=== PATIENT | male | born 1945 | race Caucasian/White ===

== ENCOUNTER 2024-07-27 11:56 | Outpatient (CLI) | payer MEDICARE, SELFPAY | END 2024-07-27 23:59 | disposition home or self-care (01) | PROVIDERS: Visit Provider Internal Medicine | DX: I20.89 Other forms of angina pectoris (principal); R06.09 Other forms of dyspnea | CPT/HCPCS: 93270; 93272 ==

== ENCOUNTER 2024-08-04 11:12 | Outpatient (CLI) | payer MEDICARE, SELFPAY ==
--- NOTE | 2024-08-04 | CA_ITS ---
APPROVED REPORT Exam: Pharmacologic Technologist: Rhonda Hanna Ht: 5 ft 9 in Wt: 193 lbs BSA: 2.03 m2 HR: 61 bpm BP: 140/74 mmHg Stress Test Details Test: Lexiscan HR Resting HR: 61 bpm Max Heart Rate (APMHR): 139 bpm Max HR Achieved: 88 bpm Target HR (85% APMHR): 118 bpm % of APMHR: 63 Recovery HR: 75 bpm BP Resting BP: 140.0/74.0 mmHg Max BP: 140.0/74.0 mmHg Recovery BP: 126.0/72.0 mmHg ECG Resting ECG: Sinus rhythm, IVCD Stress ECG Conclusion Symptoms: Dizziness, near syncope, hypotension Arrhythmias/Ectopy: None ST-T Changes: None Lexiscan Electronically signed by : Alexandria Cordova MD 08/08/2024 00:19:53
--- NOTE | 2024-08-04 11:19 | NM_ITS ---
APPROVED REPORT Exam: Nuclear Stress Test Indication: cad, htn, hyperlipidemia, angina, syncope Patient Location: Outpatient Stress Tech: Rhonda Hanna NM Tech:Mckenzie MoreauKONRAD RT (R)(N)(M) Ht: 5 ft 9 in Wt: 192 lbs HR: 61 bpm BP: 140/74 mmHg BSA: 2.03 m2 TID: 1.21 BMI: 28.3 History: cad, htn, hyperlipidemia, angina, syncope Procedure: Patient received 0.4 mg of intravenous Lexiscan, resting heart rate 61 bpm, resting blood pressure 140/74 mmHg, with Lexiscan maximum heart rate achieved was 88 bpm which is % of the maximum predicted heart rate and blood pressure was 106/60 mmHg. With Lexiscan, patient denied any complaint of chest pain. Cardiac Stress and Resting SPECT Images: Cardiac Stress and Resting SPECT images were obtained using technetium 99m Myoview 31.0 mCi stress and 10.05 mCi at rest. Resting and stress imaging in supine and prone positions demonstrate a medium sized, moderate, predominantly reversible perfusion defect in the inferior, inferoseptal, and inferolateral LV brannon. There is increase in transient ischemic dilatation ratio (TID 1.21), suggestive of possible multivessel disease or balanced ischemia. Gated imaging demonstrates mild reduction global LV systolic function. There is moderate hypokinesis of the inferior LV wall. LVEF is calculated at 48%. Conclusion: Medium sized, moderate, predominantly reversible perfusion defect in the inferior, inferoseptal, and inferolateral LV brannon. Findings are suggestive of reversible ischemia. There is increase in transient ischemic dilatation ratio (TID 1.21), suggestive of possible multivessel disease or balanced ischemia. Gated imaging demonstrates mild reduction global LV systolic function. There is moderate hypokinesis of the inferior LV wall. LVEF is calculated at 48%. Electronically signed by : Alexandria Cordova MD 08/08/2024 00:17:38
[2024-08-04] MEDS: SODIUM CHLORIDE 0.9% 10ML SYR (RAD ONLY) 10 ML IV ×2 (11:30→13:45)
--- NOTE | 2024-08-04 11:40 | CA_ITS ---
APPROVED REPORT EXAM: Comprehensive 2D, Doppler, and color-flow Echocardiogram Flight Dispatcher: LENA Lim, RVS Ht: 5 ft 9 in Wt: 193lbs BSA: 2.03 BP: 133/80 mmHg Indications: CAD -coronary stents, Cp, near Syncope, RBBB, Abn EKG, SHARMA, Murmur Echo Enhancing Agent Comments: Limited windows due to body habitus 2D Dimensions IVSd 0.81 cm M: 0.6-1.2 LVEF (Visual) 65.00 % PWd 1.15 cm M: 0.6 - 1.2 LA Volume 94.50 mL LVDd 4.17 cm M: 4.2 - 5.9 LA Volume Index 46.32 mL/m2 (M/F) 16-34 LVDs 2.10 cm M: 2.5 - 4.0 Left Atrium 4.07 cm M: 3.0 - 4.0 M-Mode Dimensions LA Diam 4.45 cm (1.9-4.0) LVDd 4.39 cm (3.5-5.7) LVDs 2.61 cm (3.5-5.7) EF (Teich) 58.00% EPSs 0.98 cm FS 35.00% EDV (Teich) 87.20 mL TAPSE 2.30 (<1.7) ESV (Teich) 24.80 mL LV Diastology E Decel Time 200 (160-240 msec) E/A Ratio 0.90 MED A' 10.90 cm/s LAT A' 10.60 cm/s Aortic Valve HELEN Index 0.80 cm2/m2 AoV Peak Carlos. 142.0 (50-130 cm/s) AI PHT 613.00 ms AO Peak GR. 8.10 mmHg AO Mean GR. 4.30 (<5 mmHg) AO VTI 32.5 (18-25 cm) HELEN (VTI) 1.67 (2.5-4.5 cm2) Mitral Valve MV A Velocity 89.0 (40-130 cm/s) E/A Ratio 0.90 Tricuspid Valve TR P. Velocity 277.00 cm/s Left Ventricle The left ventricle is normal size. The left ventricular systolic function is normal. The left ventricular ejection fraction is within the normal range. There is increased LV wall thickness. There is normal LV segmental wall motion. Diastolic function is indeterminate. LVEF is 55%. Right Ventricle The right ventricle is normal size. The right ventricular systolic function is normal. Atria Left atrium is mildly dilated. Right atrium is mildly dilated. There is no Doppler evidence of interatrial shunt. Aortic Valve Aortic valve is mildly thickened. There is no aortic valvular stenosis. Mild aortic regurgitation. Mitral Valve The mitral valve leaflets are mildly thickened. No evidence of mitral valve stenosis. Mild mitral regurgitation. Tricuspid Valve Tricuspid valve is grossly normal in structure and function. Mild tricuspid regurgitation. RVSP is normal. Pulmonic Valve The pulmonary valve is normal in structure. Trace pulmonic regurgitation. Great Vessels The aortic root is normal in size. The ascending aorta is mildly dilated, measuring 3.8 cm in diameter. IVC is normal in size and collapses >50% with inspiration. Pericardium There is no pericardial effusion. Other Information Study Quality: Fair Conclusion Normal biventricular systolic function. Biatrial dilation. Mild AI, mild MR, mild TR. The ascending aorta is mildly dilated, measuring 3.8 cm in diameter. Electronically signed by : Alexandria Cordova MD 08/09/2024 01:14:17
[2024-08-04] MEDS: REGADENOSON 0.4MG/5ML SYRINGE 0.4 MG IV (13:45)
[2024-08-04] MEDS: ISOTOPE MYOVIEW (PER STUDY) 1 DOSE IV (14:25)
== END 2024-08-04 23:59 | disposition home or self-care (01) ==
LOC: RAD 11:15
PROVIDERS: Visit Provider Internal Medicine
DX: I20.89 Other forms of angina pectoris (principal); I10 Essential (primary) hypertension; R55 Syncope and collapse; R00.1 Bradycardia, unspecified; I44.4 Left anterior fascicular block; I45.10 Unspecified right bundle-branch block; R94.31 Abnormal electrocardiogram [ECG] [EKG]; R06.09 Other forms of dyspnea; R42 Dizziness and giddiness
CPT/HCPCS: 78452; 93017; 93018; 93306; A9502; J2785

== ENCOUNTER 2024-09-27 07:33 | Outpatient (CLI) | payer MEDICARE, SELFPAY ==
--- NOTE | 2024-09-27 08:00 | CT_ITS ---
FINAL REPORT CLINICAL HISTORY: abnl stress, chest pain COMPARISON: None FINDINGS: Thin section axial CT images of the chest were obtained with contrast. 3D reformatted images were also obtained. This study was performed with techniques to keep radiation doses as low as reasonably achievable (ALARA). Individualized dose reduction techniques using automated exposure control or adjustment of mA and/or kV according to the patient's size were employed. There is no evidence of pulmonary embolism. There is no evidence of thoracic aortic aneurysm or dissection. There is no evidence of mediastinal or hilar mass or adenopathy.Moderate coronary artery calcifications are present. Scar versus atelectasis is present in the left lung base. There is no evidence of pulmonary mass or nodule. No localized inflammatory process is seen within the lungs. Limited images of the upper abdomen demonstrate mild fatty infiltration of the liver. There is also a 2.4 cm ovoid subcutaneous nodule in the mid back, that may represent a sebaceous cyst. IMPRESSION: No evidence of pulmonary embolism or aortic dissection. 2.4 cm ovoid subcutaneous nodule in the mid back, likely a sebaceous cyst. Reviewed, Interpreted and Dictated by Hector Shrestha MD Transcribed by Shira Sosa Authenticated and [facility]
[2024-09-27 08:05] LABS: Blood Urea Nitrogen 14 mg/dl (9-20); Estimated Glomerular Filt Rate 108 ml/min (>60); GFR (African American) 131 ML/MIN (>60)
[2024-09-27] MEDS: SODIUM CHLORIDE 0.9% 10ML SYR (RAD ONLY) 10 ML IV (08:27)
[2024-09-27] MEDS: 0.9 % SODIUM CHLORIDE 50 ML VIAL IV (08:27)
[2024-09-27] MEDS: IOPAMIDOL-370 (76%);100ML BOTTLE 80 ML IV (08:27)
== END 2024-09-27 23:59 | disposition home or self-care (01) ==
LOC: RAD 07:35
PROVIDERS: Visit Provider Nurse Practitioner
DX: I25.10 Atherosclerotic heart disease of native coronary artery without angina pectoris (principal); R93.1 Abnormal findings on diagnostic imaging of heart and coronary circulation; R55 Syncope and collapse; R94.31 Abnormal electrocardiogram [ECG] [EKG]
CPT/HCPCS: 36415; 71275; 82565; 84520; Q9967

== ENCOUNTER 2024-10-08 13:24 | Observation (INO) | payer MEDICARE, SELFPAY ==
[2024-10-08] VITALS (18 sets, daily range): BP systolic 108–146; BP diastolic 59–88; PULSE 50–70; RESP 16–25; TEMP 36.4–37.1; O2SAT 90–100; BMI 29.5; BMI 27.8
--- NOTE | 2024-10-08 07:06 | IR_ITS ---
APPROVED REPORT Patient Location: Outpatient PROCEDURES Left heart catheterization Left ventriculogram Selective coronary angiogram Intravascular lithotripsy to the distal dominant right coronary Drug-eluting stent deployment to the ostial proximal mid and distal dominant right coronary artery in a contiguous manner using 4 contiguous drug-eluting stents INDICATION Heavy calcification throughout the right coronary, Coronary artery disease, Angina pectoris Informed consent was obtained prior to the procedure. COMPLICATIONS NONE Estimated Blood Loss: LESS THAN 10 ML TECHNIQUE One percent lidocaine used to anesthetize the right anterior aspect of the wrist. The right radial artery was accessed via the Seldinger technique. A 6 Turkmen sheath was placed in the right radial artery. 2.5 mg of Verapamil, 800 mcg of nitroglycerin, 1mg Lidocaine and 5000 U Heparin were given through the arterial sheath. The 6 Turkmen JL 3 guide catheter catheter was also used to perform left heart catheterization, left ventriculogram and selective coronary angiogram. At the end the diagnostic angiogram therapeutic and post administered giving a therapeutic ACT and the guide catheter was placed in the right coronary followed by Choice PT extra-support wire placed distally. A guide liner was required in order to deliver a 3.5 x 34 mm Catarino frontier stent was deployed in the proximal segment at 20 linda. The guide liner was advanced and an additional 3.5 x 34 mm Superior frontier stent was deployed distal to the for stent yet still overlapping the stent also at 20 linda. At this point a 3.5 x 12 mm lithotripsy balloon was advanced and deployed at 3 linda for 80 pulsations. The balloon was brought back incrementally and increased to 5 linda of pressure with lithotripsy throughout the mid and proximal right coronary artery including the ostial segment. Following this a 3 mm x 38 mm Superior frontier stent was placed distal to the last 3.5 mm stent placed and deployed at 18 linda. The balloon was brought back and deployed at 24 linda to further post dilate. A 4 mm x 12 mm Catarino frontier stent was then placed in the ostial segment and deployed at 20 linda. The balloon was deployed incrementally throughout the proximal and midportion at 20 linda to further post dilate. Excellent angiographic results were obtained. At the end the procedure the apparatus was removed the sheath was removed and hemostasis was achieved using TR banding patient was transferred to the postop putting in stable condition. BETHANIE-3 flow was present before and after the procedure ANGIOGRAPHIC RESULTS The left main artery Has an ostial 30% stenosis and a distal 20% stenosis The left anterior descending artery Is patent and proximally calcified creating a 40 to 50% stenosis which extends into the midportion with additional 40% stenoses The circumflex artery Is nondominant has an ostial 80% calcified stenosis followed by a proximal stent which is widely patent with minimal in-stent restenosis with excellent proximal distal transitioning The right coronary artery Is a dominant vessel and has an ostial 40% stenosis proximal 50 and 60% stenoses mid vessel 40% stenosis and a distal calcified eccentric 80% stenosis The COLE ventriculogram reveals Not performed The left ventricular end-diastolic pressure Not measured IMPRESSION Severe to critical disease throughout the dominant right coronary as described above Successful intravascular lithotripsy of the dominant right coronary artery severe and critical disease reduced to 0% with 4 contiguous drug-eluting stents Persistent severe stenosis in the ostial segment of a nondominant circumflex artery which is best managed medically at this time Moderate calcified disease throughout the LAD PLAN 1. Dual antiplatelet therapy 2. LDL less than 55 to be achieved with high intensity statin 3. I would like patient to be admitted to the hospital given the complexity of the procedure with the lithotripsy device and the multiple stents. Patient has advanced age and has comorbidities. IV fluids should be given and repeat chemistry panel in the morning 4. Cardiac rehabilitation 5. Avoidance of tobacco products Electronically signed by : Sebastien Hernandez MD 10/08/2024 13:01:37
[2024-10-08 08:30] LABS: Basophils % 0.7 % (0.1-2.0); Eosinophils # 0.1 Kmm3 (0.0-0.4); Eosinophils % 2.3 % (0.1-12.0); Hematocrit 49.5 % (42.0-52.0); Hemoglobin 15.9 g/dL (14.1-18.0); Lymphocytes # 1.9 K/mm3 (0.7-4.5); Lymphocytes % 34.2 % (10-50); Mean Corpuscular HGB Conc 32.1 g/dL (31.8-35.4); Mean Corpuscular Hemoglobin 29.8 pg (27.0-31.2); Mean Corpuscular Volume 92.7 fl (80-94); Mean Platelet Volume 10.3 fl (7.4-10.4); Monocytes # 0.5 K/mm3 (0.1-1.0); Monocytes % 9.1 % (1.7-9.3); Neutrophils % 53.5 % (37.0-80.0); Nucleated Red Blood Cells # 0 10^3/uL; Nucleated Red Blood Cells % 0 %; Platelet Count 179 K/mm3 (142-424); Red Blood Count 5.34 M/mm3 (4.60-6.20); Red Cell Distribution Width 14.3 % (11.5-17.5); Red Cell Distribution Width-SD 49.1 fL; White Blood Count 5.6 K/mm3 (4.8-10.8)
[2024-10-08 08:42] LABS: Chloride 106 mmol/L (98-107); Potassium 4.4 mmoL/L (3.5-5.1); Sodium 142 mmol/L (136-145)
[2024-10-08 08:45] LABS: Anion Gap 14.4 mEq/L (5-15); Blood Urea Nitrogen 17 mg/dl (9-20); Calcium 9.2 mg/dl (8.4-10.2); Carbon Dioxide 26 mmol/L (22.0-30.0); Creatinine Clearance Estimated 74 mL/min (50-200); Estimated Glomerular Filt Rate 108 ml/min (>60); GFR (African American) 131 ML/MIN (>60); Glucose 94 mg/dl (74-100)
[2024-10-08] MEDS: diphenhydrAMINE 50MG/ML VIAL 50 MG IV (10:06)
[2024-10-08] MEDS: HEPARIN 1,000 UNITS/500ML NS (CATH LAB) 3000 UNIT IV (10:06)
[2024-10-08] MEDS: 0.9 % SODIUM CHLORIDE 500 ML 25 ML IV (10:06)
[2024-10-08] MEDS: NITROGLYCERIN 800MCG/8ML SYR (CATH LAB) 800 MCG IA (10:06)
[2024-10-08] MEDS: LIDOCAINE 1% 10ML MDV 10 ML IJ (10:06)
[2024-10-08] MEDS: HEPARIN 1,000 UNITS/ML 10ML VIAL (CATH LAB) 5000 UNIT IV ×2 (10:06→10:27)
[2024-10-08] MEDS: VERAPAMIL 2.5MG/ML 2ML VIAL 2.5 MG IV (10:33)
[2024-10-08] MEDS: CLOPIDOGREL 300MG TABLET 600 MG PO (10:43)
[2024-10-08] MEDS: FENTANYL 100MCG/2ML VIAL 50 MCG IV (10:53)
[2024-10-08] MEDS: MIDAZOLAM HCL 1MG/ML 5ML VIAL 1 MG IV (10:53)
[2024-10-08 13:23] LABS: CATHL Activated Clotting Time > 400 SEC (74-125)
[2024-10-08] MEDS: IOPAMIDOL-370 (76%);100ML BOTTLE 100 ML IV (13:29)
--- NOTE | 2024-10-08 13:30 | HMH.PHAINT1 ---
Pharmacy Intervention Comments: MEDICATION RECONCILIATION COMPLETED ON PATIENT USING EXTERNAL FILL HISTORY FROM PHARMACY AND LIST FROM CARDIOLOGY OFFICE. -ANGEL BENITEZ, MELISSAD
--- NOTE | 2024-10-08 14:01 | EXP.HP ---
History of Present Illness *Admission Date: 10/08/24 *Reason for visit:: Shortness of breath with exertion *History of present illness: 79-year-old male has been having exertional dyspnea for the past several months at home while [place]. Denies jeane chest pain but has to stop to catch his breath. Symptoms better with rest. Previous heart attack 20 years ago with which she received 4 stents. Denies jeane syncope. Presented for elective heart cath. Had extensive disease necessitating reconstruction of right coronary artery and lithotripsy. Necessitating monitoring overnight [facility] Disclaimer: The information contained in this section may have been updated after the patient was seen, as this information can be updated by other users. Medical History CAD (coronary artery disease) Abnormal findings on diagnostic imaging of heart and coronary circulation Left anterior hemiblock Surgical History H/O heart artery stent S/P cardiac cath Social History Smoking Status: Former smoker smoking status stop date: 1970 alcohol intake: current alcohol intake frequency: holidays/special occasions only current occupational status: retired Travel in the last 8 weeks: None Other Medical History Have you received the Flu Vaccine for this season: No Have you received the Pneumonia Vaccine: No Meds Home Medications and Allergies Home Medications ?Medication ?Instructions ?Recorded ?Confirmed ?Type atenolol 50 mg tablet 50 mg PO DAILY 07/27/24 10/08/24 History coenzyme Q10 10 mg capsule (Co 10 mg PO TID 07/27/24 10/08/24 History Q-10) fosinopril 10 mg tablet 10 mg PO DAILY 07/27/24 10/08/24 History glucosamine HCl 500 mg tablet 500 mg PO DAILY 07/27/24 10/08/24 History nitroglycerin 0.4 mg sublingual 0.4 mg sublingual Q5MINP PRN Chest 07/27/24 10/08/24 History tablet Pain simvastatin 40 mg tablet 40 mg PO HS 07/27/24 10/08/24 History aspirin 81 mg capsule 81 mg PO DAILY 30 days #30 caps 10/08/24 Rx clopidogrel 75 mg tablet (Plavix) 75 mg PO DAILY 30 days #30 tabs 10/08/24 Rx meloxicam 7.5 mg tablet 7.5 mg PO DAILYP PRN Mild Pain 10/08/24 10/08/24 History (Scale Score 1-4) New Prescriptions to Start Prescriptions: aspirin Sebastien Hernandez clopidogrel [Plavix] Sebastien Hernandez Allergies Allergy/AdvReac Type Severity Reaction Status Date / Time No Known Allergies Allergy Verified 08/24/24 11:03 Exam Data for Last 24 hours Vital signs and Labs for Last 24 Hours: Temp Pulse Resp BP Pulse Ox O2 Del Method 97.5 F L 52 L 16 124/68 100 Room Air 10/08/24 13:45 10/08/24 13:45 10/08/24 13:45 10/08/24 13:45 10/08/24 13:45 10/08/24 13:45 Laboratory Results - last 24 hr 10/08/24 08:20: WBC 5.6, RBC 5.34, Hgb 15.9, Hct 49.5, MCV 92.7, MCH 29.8, MCHC 32.1, RDW 14.3, Plt Count 179, MPV 10.3, Neut % (Auto) 53.5, Lymph % (Auto) 34.2, [place] % (Auto) 9.1, Eos % (Auto) 2.3, Baso % (Auto) 0.7, Neut # (Auto) 3.0, Lymph # (Auto) 1.9, [place] # (Auto) 0.5, Eos # (Auto) 0.1, Baso # (Auto) 0.0, Sodium 142, Potassium 4.4, Chloride 106, Carbon Dioxide 26, Anion Gap 14.4, BUN 17, Creatinine 0.70, Estimated Creat Clear 74, Estimated GFR 108, Est GFR ( Amer) 131, Glucose 94, Calcium 9.2 10/08/24 10:14: Activated Clotting Time > 400 H* I & O for Last 24 hours: Intake & Output 10/05/24 10/06/24 10/07/24 10/08/24 23:59 23:59 23:59 23:59 Weight 88.11 kg Constitutional Constitutional: no acute distress, average body habitus and cooperative *Routine HEENT Exam Head: Present normocephalic Eye: Present EOMI and PERRL ENT: Present mucous membranes moist *Routine Neck Exam Neck: Present supple; Absent lymphadenopathy *Routine Respiratory Exam Respiratory: Present CTA bilaterally *Routine Cardiovascular Exam Cardiovascular: Present RRR *Routine Abdominal Exam Abdominal: Present soft and normoactive bowel sounds; Absent tenderness *Routine Rectal Exam Rectal:: deferred *Routine Genitalia Exam Genitalia:: deferred *Routine Extremities Exam Extremities: Absent cyanosis, clubbing or edema *Routine Skin Exam Skin: Present warm; Absent rash *Routine Neurological Exam Neurological: Present alert, oriented X3 and moving all extremities; Absent altered mental status Assessment and Plan *Assessment and plan (1) Atypical angina: Status: Acute Category: Medical Code(s): I20.89 - Other forms of angina pectoris (2) CAD (coronary artery disease): Status: Acute Category: Medical Code(s): I25.10 - Atherosclerotic heart disease of [place] coronary artery without angina pectoris (3) Right bundle branch block: Status: Acute Category: Medical Code(s): I45.10 - Unspecified right bundle-branch block (4) Dyspnea: Status: Acute Qualifiers: Dyspnea type: dyspnea on exertion Qualified Code(s): R06.09 - Other forms of dyspnea Category: Medical Code(s): R06.00 - Dyspnea, unspecified (5) Hypertension: Status: Acute Category: Medical Code(s): I10 - Essential (primary) hypertension (6) Hyperlipidemia: Status: Acute Category: Medical Code(s): E78.5 - Hyperlipidemia, unspecified Plan Mr. Dudley is an 79-year-old male who presented for heart cath as an outpatient due to unstable angina and dyspnea with exertion. Found to have critical right coronary artery disease necessitating lithotripsy and extensive stenting. Discussed case with core composer feeder, request admission for further management overnight, monitoring of kidney function, due to severity and extent of procedure. I agreed to admit for further care. Hemodynamically stable at this time. On room air. Problems addressed as follows: Unstable angina Right bundle branch block CAD Hypertension Hyperlipidemia - Patient presented with shortness of breath with exertion. Symptoms unstable angina. Found to have significant coronary disease in the RCA. Underwent lithotripsy for critical right stenosis. Received 4 stents in right coronary artery. Cardiology requested admission for further monitoring overnight due to extent of procedure. - Initial labs showed normal kidney function with BUN of 17, creatinine 0.7. Hemoglobin within normal range. Repeat CBC, CMP, magnesium ordered for the morning. - Continue dual antiplatelet therapy with Plavix 75 mg daily and aspirin 81 mg daily - Continue home regimen with atenolol 50 mg daily, fosinopril 10 mg daily, and simvastatin 40 mg nightly. Formulary conversions for fosinopril and simvastatin. - If stable in the morning, anticipate discharge tomorrow - Continuous telemetry Full code Cardiac diet Heparinized in Vending Mechanic
--- NOTE | 2024-10-08 16:29 | PC.NURSE ---
New admit this shift. Currently resting in bed. TR band has been removed post cath w/ no issues. Sterile dressing placed, currently C/D/I. Denies chest pain/SOA. VSS. Call rosalba w/in reach. POC ongoing.
[2024-10-08] MEDS: PRAVASTATIN 40MG TAB 80 MG PO (20:19)
[2024-10-09] VITALS: PULSE 60
[2024-10-09 04:00] VITALS: PULSE 60; BMI 28.5
[2024-10-09 07:42] LABS: Basophils % 0.5 % (0.1-2.0); Eosinophils # 0.1 Kmm3 (0.0-0.4); Eosinophils % 1.2 % (0.1-12.0); Hemoglobin 14.5 g/dL (14.1-18.0); Lymphocytes # 1.2 K/mm3 (0.7-4.5); Lymphocytes % 20.7 % (10-50); Mean Corpuscular HGB Conc 32.2 g/dL (31.8-35.4); Mean Corpuscular Hemoglobin 29.3 pg (27.0-31.2); Mean Corpuscular Volume 90.9 fl (80-94); Mean Platelet Volume 10.5 fl (7.4-10.4); Monocytes # 0.6 K/mm3 (0.1-1.0); Neutrophils # 3.9 K/mm3 (1.8-7.8); Neutrophils % 67.4 % (37.0-80.0); Nucleated Red Blood Cells # 0 10^3/uL; Nucleated Red Blood Cells % 0 %; Platelet Count 147 K/mm3 (142-424); Red Blood Count 4.95 M/mm3 (4.60-6.20); Red Cell Distribution Width-SD 47.4 fL; White Blood Count 5.8 K/mm3 (4.8-10.8)
[2024-10-09 07:47] LABS: Chloride 109 mmol/L (98-107)
[2024-10-09 07:48] LABS: Potassium 4.2 mmoL/L (3.5-5.1); Sodium 139 mmol/L (136-145)
[2024-10-09 07:51] LABS: Anion Gap 11.2 mEq/L (5-15); Blood Urea Nitrogen 13 mg/dl (9-20); Calcium 8.7 mg/dl (8.4-10.2); Carbon Dioxide 23 mmol/L (22.0-30.0); Creatinine Clearance Estimated 74 mL/min (50-200); Estimated Glomerular Filt Rate 108 ml/min (>60); GFR (African American) 131 ML/MIN (>60); Glucose 99 mg/dl (74-100)
[2024-10-09 08:00] VITALS: BP 133/82; PULSE 70; RESP 17; TEMP 36.7; O2SAT 95
[2024-10-09] MEDS: LISINOPRIL 10MG TABLET 10 MG PO (08:57)
[2024-10-09] MEDS: CLOPIDOGREL 75MG TAB 75 MG PO (08:57)
[2024-10-09] MEDS: ASPIRIN EC 81MG TABLET 81 MG PO (08:58)
[2024-10-09] MEDS: ATENOLOL 50MG TABLET 50 MG PO (08:58)
--- NOTE | 2024-10-09 11:44 | P.DS_ITS ---
General Admission date:: 10/08/24 HPI HPI HPI: 79-year-old male has been having exertional dyspnea for the past several months at home while [place]. Denies jeane chest pain but has to stop to catch his breath. Symptoms better with rest. Previous heart attack 20 years ago with which she received 4 stents. Denies jeane syncope. Presented for elective heart cath. Had extensive disease necessitating reconstruction of right coronary artery and lithotripsy. Necessitating monitoring overnight Hospital Course Hospital Course Hospital Course: Mr. Dudley is an 79-year-old male who presented for heart cath as an outpatient due to unstable angina and dyspnea with exertion. Found to have critical right coronary artery disease necessitating lithotripsy and extensive stenting. Discussed case with frame assembler, request admission for further management overnight, monitoring of kidney function, due to severity and extent of procedure. Unstable angina Right bundle branch block CAD Hypertension Hyperlipidemia ? S/p PCI on 10/08/2024 with LUMA x 4 to RCA. Patient tolerated procedure well. ? Aspirin 81 mg, clopidogrel 75 mg, simvastatin 40 mg, atenolol 50 mg. ? ECHO 2 months ago revealed normal biventricular systolic function. ? Continue home fosinopril for hypertension. ? Creatinine 0.70, GFR 108. Stable. ? Will follow-up with cardiology within 2 weeks. Exam Data for Last 24 hours Vital signs and Labs for Last 24 Hours: Temp Pulse Resp BP Pulse Ox O2 Del Method 98.1 F 70 17 133/82 95 Room Air 10/09/24 08:00 10/09/24 08:00 10/09/24 08:00 10/09/24 08:00 10/09/24 08:00 10/09/24 11:00 Laboratory Results - last 24 hr 10/08/24 10:14: Activated Clotting Time > 400 H* 10/09/24 07:15: WBC 5.8, RBC 4.95, Hgb 14.5, Hct 45.0, MCV 90.9, MCH 29.3, MCHC 32.2, RDW 14.0, Plt Count 147, MPV 10.5 H, Neut % (Auto) 67.4, Lymph % (Auto) 20.7, [place] % (Auto) 10.0 H, Eos % (Auto) 1.2, Baso % (Auto) 0.5, Neut # (Auto) 3.9, Lymph # (Auto) 1.2, [place] # (Auto) 0.6, Eos # (Auto) 0.1, Baso # (Auto) 0.0, Sodium 139, Potassium 4.2, Chloride 109 H, Carbon Dioxide 23, Anion Gap 11.2, BUN 13, Creatinine 0.70, Estimated Creat Clear 74, Estimated GFR 108, Est GFR ( Amer) 131, Glucose 99, Calcium 8.7 I & O for Last 24 hours: Intake & Output 10/06/24 10/07/24 10/08/24 10/09/24 23:59 23:59 23:59 23:59 Intake Total 120 / 120 400 / 400 Output Total 0 / 0 Balance 120 / 120 400 / 400 Weight 88.11 kg 90.537 kg Constitutional Constitutional: no acute distress *Routine HEENT Exam Head: Present normocephalic Eye: Present EOMI and PERRL ENT: Present mucous membranes moist *Routine Neck Exam Neck: Present supple; Absent lymphadenopathy *Routine Respiratory Exam Respiratory: Present CTA bilaterally *Routine Cardiovascular Exam Cardiovascular: Present RRR *Routine Abdominal Exam Abdominal: Present soft and normoactive bowel sounds; Absent tenderness *Routine Extremities Exam Extremities: Absent cyanosis, clubbing or edema *Routine Skin Exam Skin: Present warm; Absent rash *Routine Neurological Exam Neurological: Present alert and oriented X3 Results Data Completed and Pending Labs on day of discharge: Labs from last 24 hours 10/09/24 10/08/24 07:15 10:14 WBC 5.8 RBC 4.95 Hgb 14.5 Hct 45.0 MCV 90.9 MCH 29.3 MCHC 32.2 RDW 14.0 Plt Count 147 MPV 10.5 H Neut % (Auto) 67.4 Lymph % (Auto) 20.7 [place] % (Auto) 10.0 H Eos % (Auto) 1.2 Baso % (Auto) 0.5 Neut # (Auto) 3.9 Lymph # (Auto) 1.2 [place] # (Auto) 0.6 Eos # (Auto) 0.1 Baso # (Auto) 0.0 Activated Clotting Time > 400 H* Sodium 139 Potassium 4.2 Chloride 109 H Carbon Dioxide 23 Anion Gap 11.2 BUN 13 Creatinine 0.70 Estimated Creat Clear 74 Estimated GFR 108 Est GFR ( Amer) 131 Glucose 99 Calcium 8.7 DS: Diagnosis Discharge Diagnosis (1) Atypical angina: Status: Acute Code(s): I20.89 - Other forms of angina pectoris (2) CAD (coronary artery disease): Status: Acute Code(s): I25.10 - Atherosclerotic heart disease of [place] coronary artery without angina pectoris (3) Right bundle branch block: Status: Acute Code(s): I45.10 - Unspecified right bundle-branch block (4) Dyspnea: Status: Acute Code(s): R06.00 - Dyspnea, unspecified Qualifiers: Dyspnea type: dyspnea on exertion Qualified Code(s): R06.09 - Other forms of dyspnea (5) Hypertension: Status: Acute Code(s): I10 - Essential (primary) hypertension (6) Hyperlipidemia: Status: Acute Code(s): E78.5 - Hyperlipidemia, unspecified Meds Home Medications and Allergies Home Medications ?Medication ?Instructions ?Recorded ?Confirmed ?Type atenolol 50 mg tablet 50 mg PO DAILY 07/27/24 10/08/24 History coenzyme Q10 10 mg capsule (Co 10 mg PO TID 07/27/24 10/08/24 History Q-10) fosinopril 10 mg tablet 10 mg PO DAILY 07/27/24 10/08/24 History glucosamine HCl 500 mg tablet 500 mg PO DAILY 07/27/24 10/08/24 History nitroglycerin 0.4 mg sublingual 0.4 mg sublingual Q5MINP PRN Chest 07/27/24 10/08/24 History tablet Pain simvastatin 40 mg tablet 40 mg PO HS 07/27/24 10/08/24 History aspirin 81 mg capsule 81 mg PO DAILY 30 days #30 caps 10/08/24 Rx clopidogrel 75 mg tablet (Plavix) 75 mg PO DAILY 30 days #30 tabs 10/08/24 Rx meloxicam 7.5 mg tablet 7.5 mg PO DAILYP PRN Mild Pain 10/08/24 10/08/24 History (Scale Score 1-4) New Prescriptions to Start Prescriptions: aspirin Sebastien Hernandez clopidogrel [Plavix] Sebastien Hernandez Allergies Allergy/AdvReac Type Severity Reaction Status Date / Time No Known Allergies Allergy Verified 08/24/24 11:03 Discharge Plan Disposition Patient Disposition: Home, Self-Care Condition: Fair Follow up Plan Follow up with: Tyler Hall PA [Physician [place] [employer]] - 10/19/24 11:30 am Prescriptions/Medication Reconciliation: New clopidogrel [Plavix] 75 mg Tablet 75 mg PO DAILY 30 Days Qty: 30 6RF aspirin 81 mg Capsule 81 mg PO DAILY 30 Days Qty: 30 6RF Continued fosinopril 10 mg tablet 10 mg PO DAILY Patient Comments: TAKE 1 TABLET BY MOUTH EVERY DAY coenzyme Q10 [Co Q-10] 10 mg capsule 10 mg PO TID simvastatin 40 mg tablet 40 mg PO HS Patient Comments: TAKE 1 TABLET BY MOUTH EVERYDAY AT BEDTIME nitroglycerin 0.4 mg tablet, sublingual 0.4 mg sublingual Q5MINP PRN (Reason: Chest Pain) Rx Instructions: do not exceed 3 doses per episode atenolol 50 mg tablet 50 mg PO DAILY Patient Comments: TAKE 1 TABLET BY MOUTH EVERY DAY glucosamine HCl 500 mg tablet 500 mg PO DAILY Rx Instructions: administer with a meal Held meloxicam 7.5 mg tablet 7.5 mg PO DAILYP PRN (Reason: Mild Pain (Scale Score 1-4)) Hold Instructions: Resume on 11/05/24. Hold this medication as it can interfere with your stents. Patient Comments: TAKE 1 TABLET BY MOUTH DAILY NEEDED FOR PAIN Other Ambulatory Orders: Basic Metabolic Panel (Routine) Timeframe: 20241019 Facility: [facility] - Location: Laboratory Ordered By: Conner Humphrey Complete Blood Count Auto Diff (Routine) Timeframe: 20241019 Facility: [facility] - Location: Laboratory Ordered By: Conner Humphrey Problem Reconciliation Problems Reviewed?: Yes Patient Discharge Instructions Patient Instructions: Cardiac Catheterization, DI for Coronary Stenting, DI for Surgical Site Infection, DI for Moderate Sedation, Exercise-based Cardiac Rehabilitation May Decrease Risk of and Future Heart Procedures, DI for Coronary Artery Disease, DI for Post-Surgical Bleeding Print Language: Amharic Providers Primary Care Provider: Provider,Referral Admit Provider: Ruben Bullock Attending Provider: Ruben Bullock
--- NOTE | 2024-10-11 14:02 | SW/DCPLANNER ---
Spoke with patient on the phone. Patient stated that he is doing well. Patient stated that he was able to get his medicine from clinic pharmacy. Patient stated that he is aware of his upcoming appointments. Patient stated that he has no concern or questions at this time. Marquita Carlson
== END 2024-10-09 12:14 | disposition home or self-care (01) ==
LOC: 2ND 13:25
PROVIDERS: Internal Medicine; Admitting Provider Internal Medicine Adolescent Medicine; Visit Provider Internal Medicine Adolescent Medicine
DX: I25.110 Atherosclerotic heart disease of native coronary artery with unstable angina pectoris (principal); I25.84 Coronary atherosclerosis due to calcified coronary lesion; I77.1 Stricture of artery; T82.855A Stenosis of coronary artery stent, initial encounter; R93.1 Abnormal findings on diagnostic imaging of heart and coronary circulation; R55 Syncope and collapse; R94.31 Abnormal electrocardiogram [ECG] [EKG]; I45.10 Unspecified right bundle-branch block; R06.09 Other forms of dyspnea; I10 Essential (primary) hypertension; E78.5 Hyperlipidemia, unspecified; Z79.02 Long term (current) use of antithrombotics/antiplatelets; Z79.899 Other long term (current) drug therapy; Y83.1 Surgical operation with implant of artificial internal device as the cause of abnormal reaction of the patient, or of later complication, without mention of misadventure at the time of the procedure
CPT/HCPCS: 36415; 80048; 85025; 85347; 92943; 92972; 93454; 99152; 99153; C1725; C1761; C1769; C1874; C9607; G0378; J1200; J1644; J3010; Q9967